=== PATIENT | female | born 1995 | race Caucasian/White ===

== ENCOUNTER 2019-04-20 11:08 | Emergency (ER) | payer MEDICAID ==
[~2019-04-20] VITALS: Ht 170.2 cm; Wt 86.0 kg
[2019-04-20 11:17] VITALS: BP 131/96
== END 2019-04-20 13:21 | disposition home or self-care (01) ==
LOC: ER 11:09
DX: R55 Syncope and collapse (principal); I10 Essential (primary) hypertension; Z91.040 Latex allergy status; R42 Dizziness and giddiness
CPT/HCPCS: 93005; 99283